=== PATIENT | male | born 1970 | race Caucasian/White ===

== ENCOUNTER 2023-01-18 21:25 | Emergency (ER) | payer MEDICAID ==
[~2023-01-18] VITALS: Ht 170.2 cm; Wt 87.7 kg
[2023-01-18 21:57] VITALS: O2SAT 96
[2023-01-18] MEDS ORDERED: BACITRACIN ZINC OINT UDPKT TOP ONE (22:30)
[2023-01-18] MEDS ORDERED: IBUPROFEN 600MG TABLET PO ONE (22:30)
[2023-01-18 23:40] VITALS: BP 131/77
[2023-01-19] MEDS ORDERED: IBUP-2029 MT (00:51)
[2023-01-19] MEDS ORDERED: BO1 TP (00:51)
[2023-01-19 01:31] VITALS: PULSE 84; RESP 16; TEMP 98.8
== END 2023-01-19 01:33 | disposition home or self-care (01) ==
LOC: ER 21:25
DX: S41.112A Laceration without foreign body of left upper arm, initial encounter (principal); E11.9 Type 2 diabetes mellitus without complications; Z98.890 Other specified postprocedural states; W19.XXXA Unspecified fall, initial encounter; Y93.89 Activity, other specified; Y92.89 Other specified places as the place of occurrence of the external cause; Y99.8 Other external cause status
CPT/HCPCS: 12002; 73060; 99283